=== PATIENT | female | born 1970 | race Caucasian/White ===

== ENCOUNTER 2018-02-12 10:48 | Observation (INO) | payer OTHER ==
[2018-02-12] MEDS ORDERED: SODIUM CHLORIDE 0.9% 500 ML 500 ML IV ONE (11:35)
--- NOTE | 2018-02-12 11:39 | ED ---
General Adult HPI - General Chief complaint: Seizure Stated complaint: Seizure Time Seen by Provider: 02/12/18 11:00 Source: patient, EMS, RN notes reviewed Mode of arrival: EMS Limitations: altered mental status - History of Present Illness Initial comments: This is a 47-year-old female who states she has a past medical history significant for anxiety depression panic attacks may be schizophrenia and Seizures. Son States Today She Got up off the Couch Was Looking like She Was in a Bit of Days and Then Collapsed the Floor. Son States She's Never Had This Type of Episode in the past As Far As He Knows. According to the son she has been saying she has not been feeling well last couple days but was not very specific. There's been no vomiting or diarrhea that he knows of. He has not seen her short of breath or any chest pain she denies any chest pain or shortness of breath. Patient denies any cough or fever. Patient denies any abdominal pain patient denies nausea vomiting or diarrhea. Patient denies any alcohol use patient denies drug use. Patient states she does have a headache but no numbness or focal weakness. While in the room the patient appeared to be unresponsive for a moment and is in his I sternal rubbed her she immediately was alert and oriented 2. Patient thinks it's 1988 and thinks David Aguilera is present. - Related Data Home Medications Medication Instructions Recorded Confirmed ALPRAZolam [Xanax] 2 mg PO BID 02/12/18 02/12/18 FLUoxetine HCL [PROzac] 20 mg PO BID 02/12/18 02/12/18 OXcarbazepine [Trileptal] 150 mg PO BID 02/12/18 02/12/18 OXcarbazepine [Trileptal] 300 mg PO BID 02/12/18 02/12/18 Omeprazole 20 mg PO DAILY 02/12/18 02/12/18 Allergies Allergy/AdvReac Type Severity Reaction Status Date / Time wool Allergy Unknown Verified 02/12/18 11:12 latex AdvReac Vomiting Verified 02/12/18 11:12 Review of Systems ROS Statement: Those systems with pertinent positive or pertinent negative responses have been documented in the HPI. ROS Other: All systems not noted in ROS Statement are negative. Past Medical History Past Medical History: Seizure Disorder History of Any Multi-Drug Resistant Organisms: None Reported Past Surgical History: Section Past Psychological History: Anxiety, Bipolar, Depression Smoking Status: Current every day smoker Past Alcohol Use History: None Reported Past Drug Use History: None Reported General Exam - General Exam Comments Initial Comments: GENERAL: Patient is well-developed and well-nourished. Patient is nontoxic and well- hydrated and is in no acute distress. Patient's speech is somewhat slow but the son states this is normal. ENT: Neck is soft and supple. No significant lymphadenopathy is noted. Oropharynx is clear. Moist mucous membranes. Neck has full range of motion without eliciting any pain. EYES: The sclera were anicteric and conjunctiva were pink and moist. Extraocular movements were intact and pupils were equal round and reactive to light. Eyelids were unremarkable. PULMONARY: Unlabored respirations. Good breath sounds bilaterally. No audible rales rhonchi or wheezing was noted. CARDIOVASCULAR: There is a regular rate and rhythm without any murmurs gallops or rubs. ABDOMEN: Soft and nontender with normal bowel sounds. No palpable organomegaly was noted. There is no palpable pulsatile mass. SKIN: Skin is clear with no lesions or rashes and otherwise unremarkable. NEUROLOGIC: Patient is alert and oriented 2. Cranial nerves II through XII are grossly intact. Motor and sensory are also intact. Her speech is a little slow but son states this is normal for her. Symmetrical smile. No focal deficit is appreciated at all MUSCULOSKELETAL: Normal extremities with adequate strength and full range of motion. No lower extremity swelling or edema. No calf tenderness. LYMPHATICS: No significant lymphadenopathy is noted PSYCHIATRIC: Normal psychiatric evaluation. Limitations: altered mental status Course Vital Signs 02/12/18 02/12/18 10:54 15:15 Temperature 99.4 F Pulse Rate 96 Pulse Rate [ 82 Right Sitting Naprapath ] Pulse Rate [ 92 Right Standing Naprapath ] Pulse Rate [ 78 Right Supine Naprapath ] Respiratory 18 Rate Blood Pressure 135/87 Blood Pressure 112/77 [Right Arm Sitting] Blood Pressure 108/79 [Right Arm Standing] Blood Pressure 102/70 [Right Arm Supine] O2 Sat by Pulse 94 L Oximetry Medical Decision Making - Medical Decision Making EKG shows normal sinus rhythm at 86 bpm MN interval is 156 QRS is 80 QT interval 370 QTC is 452. Patient's EKG shows no ST segment elevation or depression or T wave abnormalities are noted. EKG shows normal sinus rhythm at 92 bpm MN interval is 152 QRS is 82 QT interval 362 QTC is 447. Patient was not orthostatic. Patient was ambulated without problem. CT of the brain shows no acute abnormality. - Lab Data Result diagrams: 02/12/18 10:50 02/12/18 10:50 Lab Results 02/12/18 02/12/18 02/12/18 Range/Units 10:50 10:50 10:50 WBC 6.5 (3.8-10.6) k/uL RBC 4.40 (3.80-5.40) m/uL Hgb 13.2 (11.4-16.0) gm/dL Hct 41.2 (34.0-46.0) % MCV 93.5 (80.0-100.0) fL MCH 30.0 (25.0-35.0) pg MCHC 32.1 (31.0-37.0) g/dL RDW 14.9 (11.5-15.5) % Plt Count 302 (150-450) k/uL Neutrophils % 62 % Lymphocytes % 26 % Monocytes % 6 % Eosinophils % 4 % Basophils % 1 % Neutrophils # 4.0 (1.3-7.7) k/uL Lymphocytes # 1.7 (1.0-4.8) k/uL Monocytes # 0.4 (0-1.0) k/uL Eosinophils # 0.2 (0-0.7) k/uL Basophils # 0.0 (0-0.2) k/uL PT (9.0-12.0) sec INR (<1.2) APTT (22.0-30.0) sec Sodium 142 (137-145) mmol/L Potassium 4.6 (3.5-5.1) mmol/L Chloride 109 H (98-107) mmol/L Carbon Dioxide 23 (22-30) mmol/L Anion Gap 10 mmol/L BUN 17 (7-17) mg/dL Creatinine 0.63 (0.52-1.04) mg/dL Est GFR (CKD-EPI)AfAm >90 (>60 ml/min/1.73 sqM) Est GFR (CKD-EPI)NonAf >90 (>60 ml/min/1.73 sqM) Glucose 101 H (74-99) mg/dL POC Glucose (mg/dL) (75-99) mg/dL POC Glu Process Control Manager ID Calcium 8.8 (8.4-10.2) mg/dL Total Bilirubin 0.3 (0.2-1.3) mg/dL AST 52 H (14-36) U/L ALT 70 H (9-52) U/L Alkaline Phosphatase 105 (38-126) U/L Ammonia (<30) umol/L Total Creatine Kinase 94 (30-135) U/L CK-MB (CK-2) 0.6 (0.0-2.4) ng/mL CK-MB (CK-2) Rel Index 0.6 Troponin I <0.012 (0.000-0.034) ng/mL Total Protein 7.3 (6.3-8.2) g/dL Albumin 4.2 (3.5-5.0) g/dL Urine Color Urine Appearance (Clear) Urine pH (5.0-8.0) Ur Specific [place] (1.001-1.035) Urine Protein (Negative) Urine Glucose (UA) (Negative) Urine Ketones (Negative) Urine Blood (Negative) Urine Nitrite (Negative) Urine Bilirubin (Negative) Urine Urobilinogen (<2.0) mg/dL Ur Leukocyte Esterase (Negative) Urine RBC (0-5) /hpf Urine WBC (0-5) /hpf Ur Squamous Epith Cells (0-4) /hpf Urine Mucus (None) /hpf Urine Opiates Screen (NotDetected) Ur Oxycodone Screen (NotDetected) Urine Methadone Screen (NotDetected) Ur Propoxyphene Screen (NotDetected) Ur Barbiturates Screen (NotDetected) U Tricyclic Antidepress (NotDetected) Ur Phencyclidine Scrn (NotDetected) Ur Amphetamines Screen (NotDetected) U Methamphetamines Scrn (NotDetected) U Benzodiazepines Scrn (NotDetected) Urine Cocaine Screen (NotDetected) U Marijuana (THC) Screen (NotDetected) 02/12/18 02/12/18 02/12/18 Range/Units 10:50 12:39 12:55 WBC (3.8-10.6) k/uL RBC (3.80-5.40) m/uL Hgb (11.4-16.0) gm/dL Hct (34.0-46.0) % MCV (80.0-100.0) fL MCH (25.0-35.0) pg MCHC (31.0-37.0) g/dL RDW (11.5-15.5) % Plt Count (150-450) k/uL Neutrophils % % Lymphocytes % % Monocytes % % Eosinophils % % Basophils % % Neutrophils # (1.3-7.7) k/uL Lymphocytes # (1.0-4.8) k/uL Monocytes # (0-1.0) k/uL Eosinophils # (0-0.7) k/uL Basophils # (0-0.2) k/uL PT 9.5 (9.0-12.0) sec INR 0.9 (<1.2) APTT 24.5 (22.0-30.0) sec Sodium (137-145) mmol/L Potassium (3.5-5.1) mmol/L Chloride (98-107) mmol/L Carbon Dioxide (22-30) mmol/L Anion Gap mmol/L BUN (7-17) mg/dL Creatinine (0.52-1.04) mg/dL Est GFR (CKD-EPI)AfAm (>60 ml/min/1.73 sqM) Est GFR (CKD-EPI)NonAf (>60 ml/min/1.73 sqM) Glucose (74-99) mg/dL POC Glucose (mg/dL) 107 H (75-99) mg/dL POC Glu Process Control Manager ID Martha Cain Calcium (8.4-10.2) mg/dL Total Bilirubin (0.2-1.3) mg/dL AST (14-36) U/L ALT (9-52) U/L Alkaline Phosphatase (38-126) U/L Ammonia 17 (<30) umol/L Total Creatine Kinase (30-135) U/L CK-MB (CK-2) (0.0-2.4) ng/mL CK-MB (CK-2) Rel Index Troponin I (0.000-0.034) ng/mL Total Protein (6.3-8.2) g/dL Albumin (3.5-5.0) g/dL Urine Color Urine Appearance (Clear) Urine pH (5.0-8.0) Ur Specific [place] (1.001-1.035) Urine Protein (Negative) Urine Glucose (UA) (Negative) Urine Ketones (Negative) Urine Blood (Negative) Urine Nitrite (Negative) Urine Bilirubin (Negative) Urine Urobilinogen (<2.0) mg/dL Ur Leukocyte Esterase (Negative) Urine RBC (0-5) /hpf Urine WBC (0-5) /hpf Ur Squamous Epith Cells (0-4) /hpf Urine Mucus (None) /hpf Urine Opiates Screen (NotDetected) Ur Oxycodone Screen (NotDetected) Urine Methadone Screen (NotDetected) Ur Propoxyphene Screen (NotDetected) Ur Barbiturates Screen (NotDetected) U Tricyclic Antidepress (NotDetected) Ur Phencyclidine Scrn (NotDetected) Ur Amphetamines Screen (NotDetected) U Methamphetamines Scrn (NotDetected) U Benzodiazepines Scrn (NotDetected) Urine Cocaine Screen (NotDetected) U Marijuana (THC) Screen (NotDetected) 02/12/18 02/12/18 Range/Units 14:20 14:20 WBC (3.8-10.6) k/uL RBC (3.80-5.40) m/uL Hgb (11.4-16.0) gm/dL Hct (34.0-46.0) % MCV (80.0-100.0) fL MCH (25.0-35.0) pg MCHC (31.0-37.0) g/dL RDW (11.5-15.5) % Plt Count (150-450) k/uL Neutrophils % % Lymphocytes % % Monocytes % % Eosinophils % % Basophils % % Neutrophils # (1.3-7.7) k/uL Lymphocytes # (1.0-4.8) k/uL Monocytes # (0-1.0) k/uL Eosinophils # (0-0.7) k/uL Basophils # (0-0.2) k/uL PT (9.0-12.0) sec INR (<1.2) APTT (22.0-30.0) sec Sodium (137-145) mmol/L Potassium (3.5-5.1) mmol/L Chloride (98-107) mmol/L Carbon Dioxide (22-30) mmol/L Anion Gap mmol/L BUN (7-17) mg/dL Creatinine (0.52-1.04) mg/dL Est GFR (CKD-EPI)AfAm (>60 ml/min/1.73 sqM) Est GFR (CKD-EPI)NonAf (>60 ml/min/1.73 sqM) Glucose (74-99) mg/dL POC Glucose (mg/dL) (75-99) mg/dL POC Glu Process Control Manager ID Calcium (8.4-10.2) mg/dL Total Bilirubin (0.2-1.3) mg/dL AST (14-36) U/L ALT (9-52) U/L Alkaline Phosphatase (38-126) U/L Ammonia (<30) umol/L Total Creatine Kinase (30-135) U/L CK-MB (CK-2) (0.0-2.4) ng/mL CK-MB (CK-2) Rel Index Troponin I (0.000-0.034) ng/mL Total Protein (6.3-8.2) g/dL Albumin (3.5-5.0) g/dL Urine Color Yellow Urine Appearance Clear (Clear) Urine pH 6.0 (5.0-8.0) Ur Specific [place] 1.025 (1.001-1.035) Urine Protein Trace H (Negative) Urine Glucose (UA) Negative (Negative) Urine Ketones Negative (Negative) Urine Blood Trace H (Negative) Urine Nitrite Negative (Negative) Urine Bilirubin Negative (Negative) Urine Urobilinogen 3.0 (<2.0) mg/dL Ur Leukocyte Esterase Negative (Negative) Urine RBC 3 (0-5) /hpf Urine WBC 1 (0-5) /hpf Ur Squamous Epith Cells 2 (0-4) /hpf Urine Mucus Few H (None) /hpf Urine Opiates Screen Detected H (NotDetected) Ur Oxycodone Screen Not Detected (NotDetected) Urine Methadone Screen Not Detected (NotDetected) Ur Propoxyphene Screen Not Detected (NotDetected) Ur Barbiturates Screen Not Detected (NotDetected) U Tricyclic Antidepress Not Detected (NotDetected) Ur Phencyclidine Scrn Not Detected (NotDetected) Ur Amphetamines Screen Not Detected (NotDetected) U Methamphetamines Scrn Not Detected (NotDetected) U Benzodiazepines Scrn Detected H (NotDetected) Urine Cocaine Screen Not Detected (NotDetected) U Marijuana (THC) Screen Detected H (NotDetected) Disposition Clinical Impression: Altered mental status, unspecified Disposition: ADMITTED IP TO THIS HOSP Referrals: Nonstaff,Physician [Primary Care Provider] - 1-2 days Time of Disposition: 16:13
--- NOTE | 2018-02-12 12:30 | CT ---
EXAMINATION TYPE: CT brain wo con DATE OF EXAM: 02/12/2018 COMPARISON: None INDICATION: Altered mental status DLP: 1044.4 mGycm, Automated exposure control for dose reduction was used. CONTRAST: None CT of the brain is performed utilizing 3 mm thick sections through the posterior fossa and 3 mm thick sections through the remaining calvarium. Study is performed within 24 hours of arrival to the hosp ital. No abnormal hyperdensity is present to suggest an acute intracranial hemorrhage. No mass lesion is evident. No acute infarcts are evident. Ventricles and sulci are appropriate for the patient age. Mucosal thickening is within ethmoid air cells. Remaining paranasal sinuses and mastoid air cells are clear. IMPRESSIONS: 1. Normal CT Brain 2. Some mucosal thickening within ethmoid air cells.
[2018-02-12 12:40] LABS: Basophils % (A) 1 %; Eosinophils # (A) 0.2 k/uL (0-0.7); Eosinophils % (A) 4 %; HCT 41.2 % (34.0-46.0); HGB 13.2 gm/dL (11.4-16.0); Lymphocytes # (A) 1.7 k/uL (1.0-4.8); Lymphocytes % (A) 26 %; MCHC 32.1 g/dL (31.0-37.0); MCV 93.5 fL (80.0-100.0); Mean Platelet Volume 7.5; Monocytes # (A) 0.4 k/uL (0-1.0); Monocytes % (A) 6 %; Neutrophils % (A) 62 %; Platelet Count 302 k/uL (150-450); RDW 14.9 % (11.5-15.5); WBC 6.5 k/uL (3.8-10.6)
[2018-02-12 12:40] LABS: Glucose,Whole Blood 107 mg/dL (75-99)
[2018-02-12 12:44] LABS: ALT 70 U/L (9-52); AST 52 U/L (14-36); Albumin 4.2 g/dL (3.5-5.0); Alkaline Phosphatase 105 U/L (38-126); Anion Gap 10 mmol/L; Blood Urea Nitrogen 17 mg/dL (7-17); Calcium 8.8 mg/dL (8.4-10.2); Carbon Dioxide 23 mmol/L (22-30); Chloride 109 mmol/L (98-107); Glucose 101 mg/dL (74-99); Potassium 4.6 mmol/L (3.5-5.1); Sodium 142 mmol/L (137-145); Total Bilirubin 0.3 mg/dL (0.2-1.3); Total Protein 7.3 g/dL (6.3-8.2)
--- NOTE | 2018-02-12 12:44 | XR ---
EXAMINATION TYPE: XR chest 2V DATE OF EXAM: 02/12/2018 COMPARISON: NONE HISTORY: Altered mental status and weakness. TECHNIQUE: Frontal and lateral views of the chest are obtained. FINDINGS: Overlying EKG leads are seen. There is no focal air space opacity, pleural effusion, or pne umothorax seen. The cardiac silhouette size is within normal limits. The osseous structures are in tact. IMPRESSION: No acute cardiopulmonary process.
[2018-02-12 12:49] LABS: INR 0.9 (<1.2); Partial Thromboplastin Time 24.5 sec (22.0-30.0); Prothrombin Time 9.5 sec (9.0-12.0)
[2018-02-12 12:52] LABS: Creatine Kinase 94 U/L (30-135)
[2018-02-12 13:05] LABS: Creatine Kinase MB 0.6 ng/mL (0.0-2.4); Troponin I <0.012 ng/mL (0.000-0.034)
[2018-02-12 14:42] LABS: Appearance,Urine Clear (Clear); Bilirubin,Urine Negative (Negative); Blood,Urine Trace (Negative); Color,Urine Yellow; Glucose,Urine (UA) Negative (Negative); Ketones,Urine Negative (Negative); Leukocyte Esterase,Urine Negative (Negative); Mucus,Urine Few /hpf; Nitrite,Urine Negative (Negative); Protein,Urine Trace (Negative); RBC,Urine 3 /hpf (0-5); Specific Gravity,Urine 1.025 (1.001-1.035); Squamous Epithelial Cell,Urine 2 /hpf (0-4); WBC,Urine 1 /hpf (0-5)
[2018-02-12 14:49] LABS: Amphetamine Screen,Urine Not Detected (NotDetected); Cocaine Screen,Urine Not Detected (NotDetected); Opiate Screen,Urine Detected (NotDetected); Phencyclidine Screen,Urine Not Detected (NotDetected); Urn Cannabinoid Scrn Detected (NotDetected)
[2018-02-12 14:50] LABS: Barbiturate Screen,Urine Not Detected (NotDetected); Benzodiazepines Screen,Urine Detected (NotDetected); Methadone Screen, Urine Not Detected (NotDetected); Oxycodone Screen, Urine Not Detected (NotDetected); Tricyclic Antidepressant,Urine Not Detected (NotDetected)
[2018-02-12] MEDS ORDERED: SODIUM CHLORIDE 0.9% 1,000 ML IV ONE (16:23)
[2018-02-12] MEDS ORDERED: ACETAMINOPHEN TAB 325 MG TAB PO PRN (17:18)
[2018-02-12] MEDS ORDERED: NALOXONE 0.4 MG/ML 1 ML VIAL IV PRN (17:18)
--- NOTE | 2018-02-12 17:45 | P.HPIM ---
History of Present Illness H&P Date: 02/12/18 Chief Complaint: Syncopal episode, altered mental status. 47-year-old female with PMH of seizures presents the ED for syncopal episode. Patient is fatigued and sleeping at the time of H&P. She is provided limited information and majority of the H&P was discussed with her son. Son reports that the patient was sitting on the couch taken a nap. Son had waken the patient up so that they could take a trip to the mall. As the patient stood up, she took a few steps forward and son noticed that she slowed down. Son reports that she put her head down and suddenly collapsed into his arms. He denies any head trauma. He states that she lost consciousness for 10- 15 minutes. Patient denies any auras, palpitations, dizziness or shortness of breath prior to loss of consciousness. Son and daughter were both present during the event. The daughter reports some shaking of the arm and leg but denies any bladder or bowel incontinence or tongue biting. When patient regained consciousness, she was very confused and tired. In the ED, CBC and CMP were unremarkable. Initial troponin was less than 0.012 , EKG showed normal sinus rhythm. CT of the brain was negative. Chest x-ray was negative. Patient was continued to be confused in the emergency room, thinks that it is 1988 and that the president is David Aguilera. Patient is admitted for syncopal episode, altered mental status. Neurology on consult. Review of Systems All systems: negative Past Medical History Past Medical History: Seizure Disorder History of Any Multi-Drug Resistant Organisms: None Reported Past Surgical History: Section Past Psychological History: Anxiety, Bipolar, Depression Smoking Status: Current every day smoker Past Alcohol Use History: None Reported Past Drug Use History: None Reported Medications and Allergies Home Medications Medication Instructions Recorded Confirmed Type ALPRAZolam [Xanax] 2 mg PO BID 02/12/18 02/12/18 History FLUoxetine HCL [PROzac] 20 mg PO BID 02/12/18 02/12/18 History OXcarbazepine [Trileptal] 150 mg PO BID 02/12/18 02/12/18 History OXcarbazepine [Trileptal] 300 mg PO BID 02/12/18 02/12/18 History Omeprazole 20 mg PO DAILY 02/12/18 02/12/18 History Allergies Allergy/AdvReac Type Severity Reaction Status Date / Time wool Allergy Unknown Verified 02/12/18 11:12 latex AdvReac Vomiting Verified 02/12/18 11:12 Physical Exam Vitals: Vital Signs Temp Pulse Pulse Pulse Pulse Resp BP 02/12/18 15:15 82 92 78 02/12/18 10:54 99.4 F 96 18 135/87 BP BP BP Pulse Ox 02/12/18 15:15 112/77 108/79 102/70 02/12/18 10:54 94 L Intake and Output 02/12/18 02/12/18 02/12/18 06:59 14:59 22:59 Other: Weight 99.337 kg General: [non toxic], [no distress], [appears at stated age] Derm: [warm], [dry] Head: [atraumatic], [normocephalic], [symmetric] Eyes: [EOMI], [no lid lag], [anicteric sclera] Mouth: [no lip lesion], [mucus membranes moist] Cardiovascular: [S1S2 reg], [no murmur], [positive DP pulse bilateral] Lungs: [Decreased breath sounds bilateral], [no rhonchi, no rales] , [no accessory muscle use] Abdominal: [soft], [ nontender to palpation], [no guarding], [no appreciable organomegaly] Ext: [no gross muscle atrophy], [no edema], [no contractures] Neuro: [no focal neuro deficits] Psych: [Patient believes that it is 1988 and David Aguilera is the President] Results CBC & Chem 7: 02/12/18 10:50 02/12/18 10:50 Labs: Abnormal Lab Results - Last 24 Hours (Table) 02/12/18 02/12/18 02/12/18 Range/Units 10:50 12:39 14:20 Chloride 109 H (98-107) mmol/L Glucose 101 H (74-99) mg/dL POC Glucose (mg/dL) 107 H (75-99) mg/dL AST 52 H (14-36) U/L ALT 70 H (9-52) U/L Urine Protein (Negative) Urine Blood (Negative) Urine Mucus (None) /hpf Urine Opiates Screen Detected H (NotDetected) U Benzodiazepines Scrn Detected H (NotDetected) U Marijuana (THC) Screen Detected H (NotDetected) 02/12/18 Range/Units 14:20 Chloride (98-107) mmol/L Glucose (74-99) mg/dL POC Glucose (mg/dL) (75-99) mg/dL AST (14-36) U/L ALT (9-52) U/L Urine Protein Trace H (Negative) Urine Blood Trace H (Negative) Urine Mucus Few H (None) /hpf Urine Opiates Screen (NotDetected) U Benzodiazepines Scrn (NotDetected) U Marijuana (THC) Screen (NotDetected) Thrombosis Risk Factor Assmnt - Choose All That Apply Any of the Below Risk Factors Present?: Yes Each Factor Represents 1 point: Age 41-60 years Thrombosis Risk Factor Assessment Total Risk Factor Score: 1 Thrombosis Risk Factor Assessment Level: Low Risk Assessment and Plan Assessment: Assessment and Plan 1. Syncopal episode with confusion: Appears like seizure episode. Differentials include Vasovagal, Orthostatic, Cardiac (arrhythmia or murmur) or Neuro causes ( seizure). Neurochecks. Restart Oxcarbazepine 450 mg PO BID. Ammonia is within normal limits. Seizure precautions. Fall precautions. Telemetry monitoring. FU Orthostatic vitals, Echocardiogram, B12, TSH, RPR. FU Neurology 2. Transaminitis: AST 52 ALT 70. Likely medication induced. FU acute hep panel 3. Depression and Anxiety: Stable. Restart Fluoxetine 20 mg PO BID and Xanax 1 mg PO Q6 PRN. 4. DVT/GI Prophylaxis: SCD boots only, low risk. Protonix 40 mg PO QAM.
[2018-02-12] MEDS: OXcarbazepine 150 MG TAB PO SCH (21:24)
[2018-02-12] MEDS: FLUoxetine HCL 20 MG CAP PO SCH (21:24)
[2018-02-12] MEDS: OXcarbazepine 300 MG TAB PO SCH (21:24)
[2018-02-12] MEDS: ALPRAZolam 1 MG TAB PO PRN (21:24)
[2018-02-12] MEDS: HYDROcodone/APAP 5-325MG 1 EACH TAB PO PRN (21:24)
[2018-02-13] MEDS ORDERED: LORATADINE 10 MG TAB PO STA (00:15)
[2018-02-13] MEDS ORDERED: KETOROLAC 30 MG/ML 1 ML VIAL IVP STA (00:15)
[2018-02-13] MEDS: OXcarbazepine 300 MG TAB PO SCH ×2 (09:32→21:50)
[2018-02-13] MEDS: OXcarbazepine 150 MG TAB PO SCH ×2 (09:32→21:50)
[2018-02-13] MEDS: ALPRAZolam 1 MG TAB PO PRN ×2 (09:32→20:46)
[2018-02-13] MEDS: PANTOPRAZOLE 40 MG TABLET PO SCH (09:32)
[2018-02-13] MEDS: FLUoxetine HCL 20 MG CAP PO SCH ×2 (09:32→20:46)
[2018-02-13] MEDS: HYDROcodone/APAP 5-325MG 1 EACH TAB PO PRN ×2 (11:37→22:04)
--- NOTE | 2018-02-13 11:45 | ECHOF ---
Referral Reason:syncope MEASUREMENTS -------- HEIGHT: 160.0 cm WEIGHT: 81.6 kg BP: 113/71 RVIDd: 2.7 cm (< 3.3) IVSd: 1.1 cm (0.6 - 1.1) LVIDd: 4.5 cm (3.9 - 5.3) LVPWd: 1.1 cm (0.6 - 1.1) IVSs: 1.5 cm LVIDs: 2.9 cm LVPWs: 1.6 cm LA Diam: 3.2 cm (2.7 - 3.8) LAESV Index (A-L): 21.29 ml/m Ao Diam: 3.3 cm (2.0 - 3.7) AV Cusp: 2.2 cm (1.5 - 2.6) MV EXCURSION: 20.130 mm (> 18.000) MV EF SLOPE: 65 mm/s (70 - 150) EPSS: 0.9 cm MV E Jone: 0.91 m/s MV DecT: 239 ms MV A Jone: 0.97 m/s MV E/A Ratio: 0.94 AR PHT: 743 ms FINDINGS -------- Sinus rhythm. This was a technically adequate study. The left ventricular size is normal. There is borderline concentric left ventricular hypertrophy. Overall left ventricular systolic function is normal with, an EF between 55 - 60 %. The right ventricle is normal in size. Normal LA size by volume 22+/-6 ml/m2. The right atrium is normal in size. The aortic valve is trileaflet and appears structurally normal. There is mild aortic regurgitation. The mitral valve is normal. The tricuspid valve appears structurally normal. The pulmonic valve was not well visualized. There is no pulmonic regurgitation present. The aortic root size is normal. IVC Not well visulized. There is no pericardial effusion. CONCLUSIONS -------- 1. Sinus rhythm. 2. This was a technically adequate study. 3. The left ventricular size is normal. 4. There is borderline concentric left ventricular hypertrophy. 5. Overall left ventricular systolic function is normal with, an EF between 55 - 60 %. 6. Normal LA size by volume 22+/-6 ml/m2. 7. The aortic valve is trileaflet and appears structurally normal. 8. There is mild aortic regurgitation. 9. The mitral valve is normal. 10. The tricuspid valve appears structurally normal. 11. The pulmonic valve was not well visualized. 12. The aortic root size is normal. 13. IVC Not well visulized. 14. There is no pericardial effusion. [employer] COACH: Pinky Etienne RDCS
--- NOTE | 2018-02-13 17:45 | P.CONS ---
History of Present Illness - Reason for Consult Consult date: 02/13/18 Seizure - Chief Complaint Seizure - History of Present Illness Is pleasant 47 her old female being evaluated by the neurology service for seizure. She presented to [facility] emergency room after having an episode at home of collapsing. This was witnessed by her son. There was no head injury or incontinence. She denies any recent illness. She has a childhood history of seizures. She says she used to be on Depakote for many years. She self discontinued. She has significant psychological history. It seems she was put on Trileptal for mood stabilization. She denies any significant seizure activity and many years. She did have a significant period of post ictal confusion. Which resolved. At the time of my exam she is resting comfortably in bed in no acute distress. Her EKG was normal and her initial CT of the brain showed no acute intracranial abnormalities. She doesn' t think she is missed any doses of her Trileptal. Review of Systems All systems: negative Constitutional: Reports as per HPI Past Medical History Past Medical History: GERD/Reflux, Seizure Disorder Additional Past Medical History / Comment(s): anxiety/bipolar depression/panic disorder."abd hernia" History of Any Multi-Drug Resistant Organisms: None Reported Past Surgical History: Section, Tubal Ligation Additional Past Surgical History / Comment(s): x2 c-sections, laprascopic abd sx , rt arm sx d/t dog bite Past Anesthesia/Blood Transfusion Reactions: No Reported Reaction Additional Past Anesthesia/Blood Transfusion Reaction / Comm: clausterphobia Smoking Status: Current every day smoker - Past Family History Mother Additional Family Medical History / Comment(s): kidney stones, hiatal hernia, anxiety Father History Unknown: Yes Additional Family Medical History / Comment(s): Medications and Allergies Home Medications Medication Instructions Recorded Confirmed Type ALPRAZolam [Xanax] 2 mg PO BID 02/12/18 02/12/18 History FLUoxetine HCL [PROzac] 20 mg PO BID 02/12/18 02/12/18 History OXcarbazepine [Trileptal] 150 mg PO BID 02/12/18 02/12/18 History OXcarbazepine [Trileptal] 300 mg PO BID 02/12/18 02/12/18 History Omeprazole 20 mg PO DAILY 02/12/18 02/12/18 History Allergies Allergy/AdvReac Type Severity Reaction Status Date / Time wool Allergy Unknown Verified 02/12/18 11:12 latex AdvReac Vomiting Verified 02/12/18 11:12 Physical Exam Vitals: Vital Signs Temp Pulse Resp BP BP Pulse Ox 02/13/18 13:49 98.2 F 81 18 110/73 98 02/13/18 08:00 81 18 02/13/18 06:31 97.7 F 70 17 113/71 93 L 02/13/18 00:00 16 02/12/18 21:44 97.8 F 93 16 108/62 95 02/12/18 18:15 98.6 F 85 18 112/70 95 Intake and Output 02/13/18 02/13/18 02/13/18 06:59 14:59 22:59 Intake Total 720 Balance 720 Intake: Intake, IV Titration 600 Amount Sodium Chloride 0.9% 1, 600 000 ml @ 75 mls/hr IV . [id number] ONE Rx#:[id number] Oral 120 Other: # Voids 1 3 Weight 82 kg - Constitutional General appearance: cooperative, no acute distress - EENT Eyes: no abnormal pupil, edentulous, EOMI, PERRLA, no ptosis ENT: hearing grossly normal - Neck Neck: normal ROM, no rigidity - Respiratory Respiratory: negative: prolonged expiration, prolonged inspiration - Cardiovascular Rhythm: regular - Gastrointestinal General gastrointestinal: no distended, no tenderness - Neurologic The patient is alert awake and oriented 3. Speech and language are normal. There is no facial asymmetry. Strength is 5 out of 5 in bilateral upper and lower extremities. There is no sensory deficit. No tremors or seizures are seen. Cranial nerves II through XII are intact globally. Results CBC & Chem 7: 02/12/18 10:50 02/12/18 10:50 Assessment and Plan (1) Seizure Current Visit: Yes Status: Chronic Code(s): R56.9 - UNSPECIFIED CONVULSIONS SNOMED Code(s): 92402675 (2) Altered mental status, unspecified Current Visit: Yes Status: Resolved Code(s): R41.82 - ALTERED MENTAL STATUS , UNSPECIFIED SNOMED Code(s): 498854078 (3) Syncope Current Visit: Yes Status: Acute Code(s): R55 - SYNCOPE AND COLLAPSE SNOMED Code(s): 960881924 (4) Depression Current Visit: Yes Status: Chronic Code(s): F32.9 - MAJOR DEPRESSIVE DISORDER, SINGLE EPISODE, UNSPECIFIED SNOMED Code(s): 68375317 Plan: This patient with a lifelong history of intermittent seizures may have had a breakthrough seizure. There might be any show some compliance with her medication. Trileptal was restarted at 450 mg daily. An EEG was performed and we will interpret that data available. Note the urine drug screen was also positive for opiates, benzodiazepines and marijuana. She was counseled on the risks of these. For now continue seizure precautions and cardiac monitoring for her syncopal episode. We will continue to follow and make recommendations based on the above study. I have performed a history and physical on the above patient. I have reviewed the above note, and agree.
--- NOTE | 2018-02-13 17:48 | P.PN ---
Subjective Progress Note Date: 02/13/18 Principal diagnosis: Syncopal episode, altered mental status Patient was seen and examined. No acute events overnight. Patient is more awake today. She had underwent EEG earlier. Patient states that she typically experiences syncopal episodes with her seizures when suffering a febrile episode or an infection. She does complain of cough productive of green sputum. She denies any fevers but endorses chills. Patient denies any dizziness, chest pain, shortness of breath or palpitations. Complains of a bruise on her right calf. Requesting increasing pain medication. Also requesting increase in her Xanax to her home dosage. Patient reports last bowel movement 2 days ago. Objective - Vital Signs Vital signs: Vital Signs Temp 98.2 F 02/13/18 13:49 Pulse 81 02/13/18 13:49 Resp 18 02/13/18 13:49 BP 110/73 02/13/18 13:49 Pulse Ox 98 02/13/18 13:49 Intake & Output 02/12/18 02/13/18 02/13/18 18:59 06:59 18:59 Intake Total 1440 Balance 1440 Weight 99.337 kg 82 kg Intake: Intake, IV Titration 600 Amount Sodium Chloride 0.9% 1, 600 000 ml @ 75 mls/hr IV . [id number] ONE Rx#:[id number] Oral 840 Other: # Voids 1 3 - Exam General: [non toxic], [no distress], [appears at stated age], [slow to respond] Derm: [warm], [dry] Head: [atraumatic], [normocephalic], [symmetric] Eyes: [EOMI], [no lid lag], [anicteric sclera] Mouth: [no lip lesion], [mucus membranes moist] Cardiovascular: [S1S2 reg], [no murmur], [positive DP pulse bilateral] Lungs: [CTA bilateral], [no rhonchi, no rales] , [no accessory muscle use] Abdominal: [soft], [ nontender to palpation], [no guarding], [no appreciable organomegaly] Ext: [no gross muscle atrophy], [no edema], [no contractures] Neuro: [ CN II-XI grossly intact], [no focal neuro deficits] Psych: [Alert], [oriented], [appropriate affect], [patient states Chen is the president and it is 2018] - Labs CBC & Chem 7: 02/12/18 10:50 02/12/18 10:50 Assessment and Plan Assessment: Assessment and Plan 1. Syncopal episode with confusion: Appears like seizure episode. Differentials include Vasovagal, Orthostatic, Cardiac (arrhythmia or murmur) or Neuro causes ( seizure). Neurochecks. Restart Oxcarbazepine 450 mg PO BID. Ammonia is within normal limits. Seizure precautions. Fall precautions. Telemetry monitoring. Orthostats negative. Echocardiogram shows EF 55-60% with mild LVH. B12, TSH and RPR are within normal limits. FU EEG, Neurology consult, PT/OT evaluation 2. Transaminitis: AST 52 ALT 70. Likely medication induced. FU acute hep panel 3. Depression and Anxiety: Stable. Restart Fluoxetine 20 mg PO BID and Xanax 1 mg PO Q6 PRN (will increase to 2 mg) 4. Constipation: Last BM 2 days ago. Docusate PRN. 5. DVT/GI Prophylaxis: SCD boots only, low risk. Protonix 40 mg PO QAM. All workup benign at this time. EEG pending. Patient's neurological status is improved from yesterday. Neurology on consult, patient is pending clinical improvement. Possible DC tomorrow.
[2018-02-13 18:19] LABS: Hepatitis A Antibody IgM Non-Reactive (Non-Reactive); Hepatitis B Core IgM Non-Reactive (Non-Reactive)
[2018-02-13] MEDS: IPRATROPIUM-ALBUTEROL 3 ML NEB INHALATION PRN (19:47)
[2018-02-14] MEDS: IPRATROPIUM-ALBUTEROL 3 ML NEB INHALATION PRN ×5 (00:11→20:50)
[2018-02-14] MEDS: HYDROcodone/APAP 5-325MG 1 EACH TAB PO PRN ×5 (02:05→22:08)
[2018-02-14] MEDS: FLUoxetine HCL 20 MG CAP PO SCH ×2 (08:19→20:35)
[2018-02-14] MEDS: OXcarbazepine 150 MG TAB PO SCH ×2 (08:20→20:35)
[2018-02-14] MEDS: OXcarbazepine 300 MG TAB PO SCH ×2 (08:20→20:35)
[2018-02-14] MEDS: ALPRAZolam 1 MG TAB PO PRN ×2 (08:20→20:35)
[2018-02-14] MEDS: PANTOPRAZOLE 40 MG TABLET PO SCH (08:20)
--- NOTE | 2018-02-14 12:44 | EEG ---
ELECTROENCEPHALOGRAM REPORT DATE OF SERVICE: 02/13/2018 REASON FOR TESTING: Altered mental status. DESCRIPTION OF THE PROCEDURE: This EEG was performed using a 21 channel digital electroencephalograph, following international 10-20 system. DESCRIPTION OF THE RECORDING: From the beginning of the tracing, and with patient's eyes closed, the background rhythm was mostly consisting of 9-10 hertz alpha frequency in the posterior occipital leads. No obvious asymmetry is seen. Occasional movement and muscle artifacts are noticed. Photic stimulation was performed with a minimal driving response seen. No pathological waves were elicited. Hyperventilation was not performed. The patient remains awake throughout the tracing. No epileptiform discharges were seen. The EKG lead showed a regular rate and rhythm. INTERPRETATION: This awake EEG can be considered within normal limits. There was no asymmetry seen. No epileptiform discharges were noticed. The absence of epileptiform discharges does not rule out the diagnosis of epilepsy, therefore clinical correlation is recommended. [id number] / SMITHN: [id number] /
[2018-02-14] MEDS ORDERED: DOCUSATE 100 MG CAP PO PRN (13:38)
--- NOTE | 2018-02-14 14:05 | P.PN ---
Subjective Progress Note Date: 02/14/18 Principal diagnosis: Syncope, possible seizure episode Patient seen and examined. No acute events overnight. Son is at bedside, states that patient is mentally back to her baseline. She is no longer confused. Patient does complain of gait instability however. Patient had a difficult time ambulating from the bed to her bedside commode this morning. Patient reports buckling of her right knee. States that this is been ongoing for a number of years but son reports that this is continuously getting worse. Patient does live alone but has her son lives upstairs in a neighboring unit. She denies any dizziness, shortness of breath or palpitations. Objective - Vital Signs Vital signs: Vital Signs Temp 97.4 F L 02/14/18 05:00 Pulse 84 02/14/18 12:37 Resp 18 02/14/18 05:00 BP 106/58 02/14/18 05:00 Pulse Ox 94 L 02/14/18 05:00 Intake & Output 02/13/18 02/14/18 02/14/18 18:59 06:59 18:59 Intake Total 404 959 5689 Balance 546 504 6941 Weight 82 kg Intake: Intake, IV Titration 825 Amount Sodium Chloride 0.9% 1, 825 000 ml @ 75 mls/hr IV . [id number] ONE Rx#:[id number] Oral 480 1150 Other: Voiding Method Bedside Commode Toilet Diaper Incontinent # Voids 3 3 2 - Exam General: [non toxic], [no distress], [appears at stated age], [slow to respond] Derm: [warm], [dry] Head: [atraumatic], [normocephalic], [symmetric] Eyes: [EOMI], [no lid lag], [anicteric sclera] Mouth: [no lip lesion], [mucus membranes moist] Cardiovascular: [S1S2 reg], [no murmur], [positive DP pulse bilateral] Lungs: [CTA bilateral], [no rhonchi, no rales] , [no accessory muscle use] Abdominal: [soft], [ nontender to palpation], [no guarding], [no appreciable organomegaly] Ext: [no gross muscle atrophy], [no edema], [no contractures] Neuro: [ CN II-XI grossly intact], [no focal neuro deficits], [unstable gait] Psych: [Alert], [oriented], [appropriate affect], [patient states Chen is the president and it is 2018] - Labs CBC & Chem 7: 02/12/18 10:50 02/12/18 10:50 Assessment and Plan Assessment: Assessment and Plan 1. Syncopal episode with confusion: Appears like seizure episode. Differentials include Vasovagal, Orthostatic, Cardiac (arrhythmia or murmur) or Neuro causes ( seizure). Neurochecks. Restart Oxcarbazepine 450 mg PO BID. Ammonia is within normal limits. Seizure precautions. Fall precautions. Telemetry monitoring. Orthostats negative. Echocardiogram shows EF 55-60% with mild LVH. B12, TSH and RPR are within normal limits. EEG shows no seizure-like episode. PT evaluated the patient, will need further sessions while inpatient. FU Neurology consult, PT/OT evaluation 2. Transaminitis: AST 52 ALT 70. Likely medication induced. Acute hep panel negative. 3. Depression and Anxiety: Stable. Restart Fluoxetine 20 mg PO BID and Xanax 2 mg PO Q6 PRN 4. Constipation: Bowel movement today. Resolved. Docusate PRN. 5. DVT/GI Prophylaxis: SCD boots only, low risk. Protonix 40 mg PO QAM Patient's neurological status is improved. Neurology on consult, will follow recommendations. At this point, I believe that her gait issues with lead to an unsafe discharge. She would benefit from working with physical therapy to improve her gait and balance.
--- NOTE | 2018-02-14 15:32 | P.PN ---
Subjective Progress Note Date: 02/14/18 Principal diagnosis: Seizure This pleasant 47-year-old female continuing be evaluated by the neurology service for seizures recall she had an episode of home collapse and a witnessed seizure. We think there was some complaints issues with her Trileptal. Trileptal has been reinitiated at her usual dose. She has had no seizure activity since admission. She is back to her baseline. She's having some ambulation issues due to a chronic knee injury. Objective - Vital Signs Vital signs: Vital Signs Temp 97.6 F 02/14/18 14:31 Pulse 85 02/14/18 15:18 Resp 16 02/14/18 15:18 BP 135/86 02/14/18 14:31 Pulse Ox 96 02/14/18 14:31 Intake & Output 02/13/18 02/14/18 02/14/18 18:59 06:59 18:59 Intake Total 482 155 9015 Balance 909 631 2470 Weight 82 kg Intake: Intake, IV Titration 825 Amount Sodium Chloride 0.9% 1, 825 000 ml @ 75 mls/hr IV . [id number] ONE Rx#:[id number] Oral 480 1150 Other: Voiding Method Bedside Commode Toilet Diaper Incontinent # Voids 3 3 2 - Constitutional General appearance: Present: cooperative, no acute distress - EENT Eyes: Present: PERRLA. Absent: abnormal pupil, ptosis ENT: Present: hearing grossly normal - Neck Neck: Present: normal ROM. Absent: rigidity - Respiratory Respiratory: negative: prolonged expiration, prolonged inspiration - Cardiovascular Rhythm: regular - Neurologic Neurologic Comment(s): The patient is alert awake and oriented 3. Speech and language are normal. There is no facial asymmetry. Strength is 5 out of 5 in bilateral upper and lower extremities. There is no sensory deficit. No tremors or seizures are seen. Cranial nerves II through XII are intact globally. - Labs CBC & Chem 7: 02/12/18 10:50 02/12/18 10:50 Assessment and Plan (1) Seizure Current Visit: Yes Status: Chronic Code(s): R56.9 - UNSPECIFIED CONVULSIONS SNOMED Code(s): 30389021 (2) Altered mental status, unspecified Current Visit: Yes Status: Resolved Code(s): R41.82 - ALTERED MENTAL STATUS , UNSPECIFIED SNOMED Code(s): 556367340 (3) Syncope Current Visit: Yes Status: Acute Code(s): R55 - SYNCOPE AND COLLAPSE SNOMED Code(s): 611549438 (4) Depression Current Visit: Yes Status: Chronic Code(s): F32.9 - MAJOR DEPRESSIVE DISORDER, SINGLE EPISODE, UNSPECIFIED SNOMED Code(s): 51125064 Plan: This patient with a lifelong history of intermittent seizures may have had a breakthrough seizure. There might be an issue with compliance regarding her medication. Trileptal was restarted at 450 mg daily. An EEG was performed and was normal. Note the urine drug screen was also positive for opiates, benzodiazepines and marijuana. She was counseled on the risks of these. For now continue seizure precautions and cardiac monitoring for her syncopal episode. She is otherwise cleared from a neurological standpoint. I have performed a history and physical on the above patient. I have reviewed the above note, and agree.
[2018-02-15] MEDS: IPRATROPIUM-ALBUTEROL 3 ML NEB INHALATION PRN ×5 (02:08→19:47)
[2018-02-15] MEDS: HYDROcodone/APAP 5-325MG 1 EACH TAB PO PRN ×2 (02:59→07:03)
[2018-02-15] MEDS: PANTOPRAZOLE 40 MG TABLET PO SCH (07:03)
[2018-02-15] MEDS: FLUoxetine HCL 20 MG CAP PO SCH ×2 (07:03→20:39)
[2018-02-15] MEDS: OXcarbazepine 300 MG TAB PO SCH ×2 (07:04→20:39)
[2018-02-15] MEDS: OXcarbazepine 150 MG TAB PO SCH ×2 (07:04→20:39)
[2018-02-15] MEDS: ALPRAZolam 1 MG TAB PO PRN ×2 (08:09→20:41)
--- NOTE | 2018-02-15 10:56 | P.PN ---
Subjective Progress Note Date: 02/15/18 Principal diagnosis: Seizure, unstable gait Patient was seen and examined. No acute events overnight. Per RN, patient had a questionable seizure yesterday night but was able to snap out of it when her cuticle was pinched. Patient continues to report unstable gait, buckling at the knees. She has been ambulating however with a walker. She is pending continued work with physical therapy for unstable gait. Was able to talk to her boyfriend on the phone. Her boyfriend reports that the patient is a mental IQ of 58. Also reports that she's been suffering from degenerative disc disc disease and sciatica for a number of years, has had difficulty ambulating throughout her home and requires adequate pain management. She has previously undergone imaging workup of her lower back pain. She denies any bladder or bowel incontinence no saddle anesthesia. Objective - Vital Signs Vital signs: Vital Signs Temp 97.7 F 02/15/18 05:00 Pulse 88 02/15/18 07:31 Resp 20 02/15/18 05:00 BP 113/70 02/15/18 05:00 Pulse Ox 93 L 02/15/18 05:00 Intake & Output 02/14/18 02/15/18 02/15/18 18:59 06:59 18:59 Intake Total 1150 Balance 1150 Weight 82 kg 82 kg Intake: Oral 1150 Other: Voiding Method Toilet Diaper Incontinent # Voids 2 3 3 - Exam General: [non toxic], [no distress], [appears at stated age], [slow to respond] Derm: [warm], [dry] Head: [atraumatic], [normocephalic], [symmetric] Eyes: [EOMI], [no lid lag], [anicteric sclera] Mouth: [no lip lesion], [mucus membranes moist] Cardiovascular: [S1S2 reg], [no murmur], [positive DP pulse bilateral] Lungs: [CTA bilateral], [no rhonchi, no rales] , [no accessory muscle use] Abdominal: [soft], [ nontender to palpation], [no guarding], [no appreciable organomegaly] Ext: [no gross muscle atrophy], [no edema], [no contractures], [limited range of motion of the right hip due to pain, limited abduction and abduction] Neuro: [no focal neuro deficits] Psych: [Alert], [oriented], [appropriate affect] - Labs CBC & Chem 7: 02/12/18 10:50 02/12/18 10:50 Assessment and Plan Assessment: Assessment and Plan 1. Syncopal episode with confusion: Appears like seizure episode. Differentials include Vasovagal, Orthostatic, Cardiac (arrhythmia or murmur) or Neuro causes ( seizure). Neurochecks. Restart Oxcarbazepine 450 mg PO BID. Ammonia is within normal limits. Seizure precautions. Fall precautions. Telemetry monitoring. Orthostats negative. Echocardiogram shows EF 55-60% with mild LVH. B12, TSH and RPR are within normal limits. EEG shows no seizure-like episode. PT evaluated the patient, will need further sessions while inpatient. Neurology consulted, cleared patient for discharge. FU PT/OT 2. Hip pain: Patient reports previous imaging showing DJD of the hip and sciatia. Will DC Lula and start Oxycodone (patient's preference). PT evaluated the patient, recommended continued workup. Fall precautions. FU PT evaluation 3. Transaminitis: AST 52 ALT 70. Likely medication induced. Acute hep panel negative. 4. Depression and Anxiety: Stable. Restart Fluoxetine 20 mg PO BID and Xanax 2 mg PO Q6 PRN 5. DVT/GI Prophylaxis: SCD boots only, low risk. Protonix 40 mg PO QAM Patient has neurologically improved and is cleared for discharge from that standpoint. At this point, I believe that her gait issues with lead to an unsafe discharge. She would benefit from working with physical therapy to improve her gait and balance.
[2018-02-15] MEDS: LORATADINE 10 MG TAB PO SCH (11:19)
[2018-02-15] MEDS: oxyCODONE-APAP 5-325MG 1 EACH TAB PO PRN ×3 (11:19→20:41)
[2018-02-16 00:05] VITALS: RESP 20
[2018-02-16] MEDS: oxyCODONE-APAP 5-325MG 1 EACH TAB PO PRN ×2 (00:49→09:51)
[2018-02-16] MEDS: IPRATROPIUM-ALBUTEROL 3 ML NEB INHALATION PRN ×2 (07:52→11:29)
[2018-02-16 08:16] VITALS: BP 107/69; TEMP 97.7
[2018-02-16] MEDS: ALPRAZolam 1 MG TAB PO PRN (08:30)
[2018-02-16] MEDS: OXcarbazepine 150 MG TAB PO SCH (08:30)
[2018-02-16] MEDS: OXcarbazepine 300 MG TAB PO SCH (08:30)
[2018-02-16] MEDS: PANTOPRAZOLE 40 MG TABLET PO SCH (08:30)
[2018-02-16] MEDS: LORATADINE 10 MG TAB PO SCH (08:30)
[2018-02-16] MEDS: FLUoxetine HCL 20 MG CAP PO SCH (08:30)
--- NOTE | 2018-02-16 11:42 | P.DS ---
Providers Date of admission: 02/12/18 16:24 Expected date of discharge: 02/16/18 Attending physician: Bam Eddy MD Consults: 02/12/18 17:29 Consult Physician Urgent Consulting Provider: Pollo Busch Consult Reason/Comments: AMS, syncope possible Seizure Do you want consulting provider notified?: Yes Primary care physician: Physician Nonstaff - Discharge Diagnosis(es) (1) Hip pain Current Visit: Yes Status: Acute (2) Transaminitis Current Visit: Yes Status: Acute (3) Anxiety and depression Current Visit: Yes Status: Acute (4) Syncope Current Visit: Yes Status: Acute (5) Seizure Current Visit: Yes Status: Chronic (6) Altered mental status, unspecified Current Visit: Yes Status: Resolved Hospital Course: 47-year-old female with PMH of seizures presents the ED for syncopal episode. Patient is fatigued and sleeping at the time of H&P. She is provided limited information and majority of the H&P was discussed with her son. Son reports that the patient was sitting on the couch taken a nap. Son had waken the patient up so that they could take a trip to the mall. As the patient stood up, she took a few steps forward and son noticed that she slowed down. Son reports that she put her head down and suddenly collapsed into his arms. He denies any head trauma. He states that she lost consciousness for 10- 15 minutes. Patient denies any auras, palpitations, dizziness or shortness of breath prior to loss of consciousness. Son and daughter were both present during the event. The daughter reports some shaking of the arm and leg but denies any bladder or bowel incontinence or tongue biting. When patient regained consciousness, she was very confused and tired. In the ED, CBC and CMP were unremarkable. Initial troponin was less than 0.012 , EKG showed normal sinus rhythm. CT of the brain was negative. Chest x-ray was negative. Patient was continued to be confused in the emergency room, thinks that it is 1987 and that the president is David Aguilera. Patient is admitted for syncopal episode, altered mental status. Neurology on consult. Patient had some questionable seizure-like episodes throughout her hospitalization. She did not require any Ativan for seizures. She actually responded to pinching of the cuticle during one of these episodes. Patient was restarted on oxcarbazepine with her home dose. Ammonia was within normal limits. Patient was placed on fall and seizure precautions. Telemetry monitoring was negative. Orthostats were negative. Echocardiogram was done which showed an ejection fraction of 55-60% with mild LVH. B12, TSH and RPR were all within normal limits. EEG was done which showed no seizure-like activity. Neurology was consulted at this time include the patient for discharge with her home medications. Patient was noted to have an unstable gait due to her chronic hip pain. She was started on [place] for pain management which was later switched to oxycodone. Physical therapy was consulted to clear the patient for discharge. Prescription for walker was signed. Patient seen and examined prior to discharge. No acute events overnight. Patient reported additional seizure-like this morning. She complains of myalgias and chills, requesting pain medication. General: [non toxic], [no distress], [appears at stated age], [slow to respond] Derm: [warm], [dry] Head: [atraumatic], [normocephalic], [symmetric] Eyes: [EOMI], [no lid lag], [anicteric sclera] Mouth: [no lip lesion], [mucus membranes moist] Cardiovascular: [S1S2 reg], [no murmur], [positive DP pulse bilateral] Lungs: [CTA bilateral], [no rhonchi, no rales] , [no accessory muscle use] Abdominal: [soft], [ nontender to palpation], [no guarding], [no appreciable organomegaly] Ext: [no gross muscle atrophy], [no edema], [no contractures], [limited range of motion of the right hip due to pain, limited abduction and abduction] Neuro: [no focal neuro deficits] Psych: [Alert], [oriented], [appropriate affect] Assessment and Plan 1. Syncopal episode with confusion: Appears like seizure episode. Differentials include Vasovagal, Orthostatic, Cardiac (arrhythmia or murmur) or Neuro causes ( seizure). Neurochecks. Restart Oxcarbazepine 450 mg PO BID. Ammonia is within normal limits. Seizure precautions. Fall precautions. Telemetry monitoring. Orthostats negative. Echocardiogram shows EF 55-60% with mild LVH. B12, TSH and RPR are within normal limits. EEG shows no seizure-like episode. PT evaluated the patient, will need further sessions while inpatient. Neurology consulted, cleared patient for discharge. FU PT/OT 2. Hip pain: Patient reports previous imaging showing DJD of the hip and sciatia. Will DC [place] and start Oxycodone (patient's preference). PT evaluated the patient, recommended continued workup. Fall precautions. FU PT evaluation 3. Transaminitis: AST 52 ALT 70. Likely medication induced. Acute hep panel negative. 4. Depression and Anxiety: Stable. Restart Fluoxetine 20 mg PO BID and Xanax 2 mg PO Q6 PRN 5. DVT/GI Prophylaxis: SCD boots only, low risk. Protonix 40 mg PO QAM Patient has neurologically improved and is cleared for discharge from that standpoint. 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 There might be some pain medication seeking component as well. Likely discharge home with home PT and a walker pending PT evaluation. Pertinent Studies: Chest x-ray Brain CT Echocardiogram EEG Patient Condition at Discharge: Stable Plan - Discharge Summary Discharge Rx Participant: Yes New Discharge Prescriptions: Continue Omeprazole 20 mg PO DAILY FLUoxetine HCL [PROzac] 20 mg PO BID ALPRAZolam [Xanax] 2 mg PO BID OXcarbazepine [Trileptal] 300 mg PO BID #60 tablet OXcarbazepine [Trileptal] 150 mg PO BID #60 tab Discharge Medication List ALPRAZolam [Xanax] 2 mg PO BID 02/12/18 [History] FLUoxetine HCL [PROzac] 20 mg PO BID 02/12/18 [History] Omeprazole 20 mg PO DAILY 02/12/18 [History] OXcarbazepine [Trileptal] 150 mg PO BID #60 tab 02/16/18 [Rx] OXcarbazepine [Trileptal] 300 mg PO BID #60 tablet 02/16/18 [Rx] Follow up Appointment(s)/Referral(s): Nonstaff,Physician [Primary Care Provider] - 1-2 days Pollo Busch MD [STAFF PHYSICIAN] - 1 Week Activity/Diet/Wound Care/Special Instructions: Diet: Regular diet. Please follow-up with your primary care provider within 1-2 days of discharge. Please follow-up with your neurologist Dr. Busch within 1 week of discharge. Please take all medications as advised. Discharge Disposition: HOME SELF-CARE
[2018-02-16 11:43] VITALS: PULSE 84
[2018-02-16] MEDS ORDERED: oxyCODONE-APAP 5-325MG 1 EACH TAB PO STA (12:06)
== END 2018-02-16 16:00 | disposition home or self-care (01) ==
LOC: EC 10:48 → 4MS4W 16:24 → 3NMEDONC 20:14
PROVIDERS: ADMIT Family Medicine; ATTEND Family Medicine
DX: R55 Syncope and collapse (principal); G89.29 Other chronic pain; M16.10 Unilateral primary osteoarthritis, unspecified hip; R74.0 Nonspecific elevation of levels of transaminase and lactic acid dehydrogenase [LDH]; F41.9 Anxiety disorder, unspecified; F41.0 Panic disorder [episodic paroxysmal anxiety]; F32.9 Major depressive disorder, single episode, unspecified; M54.40 Lumbago with sciatica, unspecified side; K59.00 Constipation, unspecified; R41.82 Altered mental status, unspecified; R50.9 Fever, unspecified; K21.9 Gastro-esophageal reflux disease without esophagitis; G40.909 Epilepsy, unspecified, not intractable, without status epilepticus; M79.10 Myalgia, unspecified site; F17.200 Nicotine dependence, unspecified, uncomplicated; Z79.899 Other long term (current) drug therapy; Z91.040 Latex allergy status; Z91.048 Other nonmedicinal substance allergy status; Z84.1 Family history of disorders of kidney and ureter
CPT/HCPCS: 96361 ×3; 96374; 99285; 36415; 94640 ×7; 94760 ×2; 95816; 93005; 93306; 97116; 97530; 97162; 97535; 97166; 80053; 80074; 84443; 82607; 82140; 82550; 82553; 84484; 85025; 85610; 85730; 81001; 86780; 80306; 71046; 70450; G0378 ×5; J1885

== ENCOUNTER 2018-02-20 15:19 | Emergency (ER) | payer OTHER ==
[2018-02-20 16:33] VITALS: RESP 16
--- NOTE | 2018-02-20 16:51 | XR ---
EXAMINATION TYPE: XR lumbosacral spine min 4V DATE OF EXAM: 02/20/2018 COMPARISON: NONE HISTORY: Pain after fall TECHNIQUE: 5 views FINDINGS: The lumbar vertebra have normal alignment. Posterior elements are intact. There is spurring in the endplates. There is no significant disc space narrowing. Sacroiliac joints are intact. IMPRESSION: Mild spondylotic changes. No fracture seen.
--- NOTE | 2018-02-20 16:52 | XR ---
EXAMINATION TYPE: XR Hip Complete RT DATE OF EXAM: 02/20/2018 COMPARISON: NONE HISTORY: Hip pain TECHNIQUE: 2 views FINDINGS: There is acetabular mild spurring. I see no fracture nor dislocation. Hip joint spaces norm al. Sacroiliac joint is intact. IMPRESSION: Mild acetabular spurring. No fracture seen.
--- NOTE | 2018-02-20 17:21 | ED ---
Fall HPI - General Chief Complaint: Fall Stated Complaint: Fall Time Seen by Provider: 02/20/18 16:07 Source: patient, RN notes reviewed Mode of arrival: wheelchair Limitations: no limitations - History of Present Illness Initial Comments: 47-year-old female presents emergency Department chief complaint of right hip pain, low back pain. Patient states that she is chronic pain. Patient states that she tripped and fell today. Patient states she had worsening pain to her home healthcare nurse told her to come emergency department. Denies any head injury no loss conscious. Patient states that she had a recent hospitalization for unsteady gait, seizure disorder. Patient states that the symptoms are improved. Patient denies any bowel bladder habits retention. Denies any saddle anesthesias. - Related Data Home Medications Medication Instructions Recorded Confirmed ALPRAZolam [Xanax] 2 mg PO BID 02/12/18 02/20/18 FLUoxetine HCL [PROzac] 20 mg PO BID 02/12/18 02/20/18 Omeprazole 20 mg PO DAILY 02/12/18 02/20/18 Cholecalciferol [Vitamin D3] 1,000 unit PO DAILY 02/20/18 02/20/18 Loratadine [Claritin] 10 mg PO DAILY 02/20/18 02/20/18 Previous Rx's Medication Instructions Recorded OXcarbazepine [Trileptal] 150 mg PO BID #60 tab 02/16/18 OXcarbazepine [Trileptal] 300 mg PO BID #60 tablet 02/16/18 Allergies Allergy/AdvReac Type Severity Reaction Status Date / Time wool Allergy Unknown Verified 02/20/18 16:08 latex AdvReac Vomiting Verified 02/20/18 16:08 Review of Systems ROS Statement: Those systems with pertinent positive or pertinent negative responses have been documented in the HPI. ROS Other: All systems not noted in ROS Statement are negative. Past Medical History Past Medical History: GERD/Reflux, Seizure Disorder Additional Past Medical History / Comment(s): anxiety/bipolar depression/panic disorder."abd hernia" History of Any Multi-Drug Resistant Organisms: None Reported Past Surgical History: Section, Tubal Ligation Additional Past Surgical History / Comment(s): x2 c-sections, laprascopic abd sx , rt arm sx d/t dog bite Past Anesthesia/Blood Transfusion Reactions: No Reported Reaction Additional Past Anesthesia/Blood Transfusion Reaction / Comment(s): clausterphobia Past Psychological History: Anxiety, Bipolar, Depression, Panic Disorder Smoking Status: Current every day smoker Past Alcohol Use History: None Reported Past Drug Use History: None Reported - Past Family History Mother Additional Family Medical History / Comment(s): kidney stones, hiatal hernia, anxiety Father History Unknown: Yes Additional Family Medical History / Comment(s): General Exam Limitations: no limitations General appearance: alert, in no apparent distress Head exam: Present: atraumatic, normocephalic, normal inspection Neck exam: Present: normal inspection, full ROM. Absent: tenderness, meningismus, lymphadenopathy Respiratory exam: Present: normal lung sounds bilaterally. Absent: respiratory distress, wheezes, rales, rhonchi, stridor Cardiovascular Exam: Present: regular rate, normal rhythm, normal heart sounds. Absent: systolic murmur, diastolic murmur, rubs, gallop, clicks GI/Abdominal exam: Present: soft, normal bowel sounds. Absent: distended, tenderness, guarding, rebound, rigid Extremities exam: Present: other (Lower extremity strength equal bilaterally, neurovascular intact, mild hip tenderness with palpation no iris deformity no ecchymosis) Back exam: Present: full ROM, tenderness (Mild lumbar region to the right), paraspinal tenderness, other (Pain with right straight leg raise). Absent: vertebral tenderness Neurological exam: Present: reflexes normal. Absent: motor sensory deficit Skin exam: Present: warm, dry, intact, normal color. Absent: rash Course Vital Signs 02/20/18 02/20/18 15:25 16:25 Temperature 97.6 F Pulse Rate 96 Respiratory 20 16 Rate Blood Pressure 139/89 O2 Sat by Pulse 96 Oximetry Medical Decision Making - Medical Decision Making Old records were reviewed. 47-year-old female presents emergency from for fall , back and hip pain. X-rays obtained no acute fracture. Patient will be discharged. Patient is able to ambulate with no assistance. Patient has no red flag symptoms. Disposition Clinical Impression: Fall, Hip pain, Back pain Disposition: HOME SELF-CARE Condition: Stable Instructions: Lumbar Radiculopathy (ED) Additional Instructions: Please return to the Emergency Department if symptoms worsen or any other concerns. Is patient prescribed a controlled substance at d/c from ED?: No Referrals: Nonstaff,Physician [Primary Care Provider] - 1-2 days Chardon,Nael G, MD [STAFF PHYSICIAN] - 1-2 days Cecile Tsang DO [Doctor of Osteopathic Medicine] - 1-2 days Time of Disposition: 17:21
[2018-02-20 17:38] VITALS: BP 119/67; PULSE 78; TEMP 97
== END 2018-02-20 17:30 | disposition home or self-care (01) ==
LOC: EC 15:19
DX: M25.551 Pain in right hip (principal); M54.9 Dorsalgia, unspecified; K21.9 Gastro-esophageal reflux disease without esophagitis; G40.909 Epilepsy, unspecified, not intractable, without status epilepticus; F31.9 Bipolar disorder, unspecified; F41.0 Panic disorder [episodic paroxysmal anxiety]; F17.200 Nicotine dependence, unspecified, uncomplicated; Z79.899 Other long term (current) drug therapy; Z91.040 Latex allergy status; Z91.09 Other allergy status, other than to drugs and biological substances
CPT/HCPCS: 72110; 73502; 99283